=== PATIENT | male | born 1970 ===

== ENCOUNTER 2016-11-22 14:02 | Emergency (ER) | payer OTHER ==
[2016-11-22 14:32] VITALS: TEMP 98
--- NOTE | 2016-11-22 15:20 | C.PDOC ---
History Of Present Illness 46 yr old male with PMHx of chronic back pain, presents to the ER stating yesterday he shoveled some heavy snow and this morning woke up with constant low back pain. Patient denies fall or direct trauma, abdominal pain, vomiting, diarrhea, dysuria, incontinence, urinary or bowel retention, weakness or numbness. Time Seen by Provider: 11/22/16 14:20 Chief Complaint (Nursing): Back Pain History Per: Patient History/Exam Limitations: no limitations Onset/Duration Of Symptoms: Sudden Onset (since morning) Current Symptoms Are (Timing): Still Present Pain Scale Rating Of: 6 Associated Symptoms: denies: Incontinence, New Weakness, New Numbness Exacerbating Factor(s): Turning, Movement Recent travel outside of the [place]: No Past Medical History Reviewed: Historical Data, Nursing Documentation, Vital Signs Vital Signs: Last Vital Signs Temp 98.0 F 11/22/16 14:18 Pulse 87 11/22/16 14:18 Resp 20 11/22/16 14:18 BP 122/71 11/22/16 14:18 Pulse Ox 99 11/22/16 15:22 Family History: States: No Known Family Hx - Social History Hx Alcohol Use: No Hx Substance Use: No - Immunization History Hx Tetanus Toxoid Vaccination: No Hx Influenza Vaccination: Yes Hx Pneumococcal Vaccination: No Review Of Systems Except As Marked, All Systems Reviewed And Found Negative. Gastrointestinal: Negative for: Vomiting, Abdominal Pain, Diarrhea Genitourinary: Negative for: Dysuria, Incontinence Musculoskeletal: Positive for: Back Pain Neurological: Negative for: Weakness, Numbness Physical Exam - Physical Exam Appears: Non-toxic, No Acute Distress Skin: Normal Color, Warm, Dry, No Rash Head: Atraumatic, Normacephalic Eye(s): bilateral: Normal Inspection Oral Mucosa: Moist Neck: Normal ROM, No Midline Cervical Tenderness, No Paracervical Tenderness Chest: Symmetrical, No Tenderness Cardiovascular: Rhythm Regular, No Friction Rub, No Murmur Respiratory: Normal Breath Sounds, No Rales, No Rhonchi, No Stridor, No Wheezing Gastrointestinal/Abdominal: Normal Exam, Soft, No Tenderness, No Guarding, No Rebound Back: No CVA Tenderness, Paraspinal Tenderness (bilateral para lumbar tenderness. No midline tenderness) Extremity: Normal ROM, No Tenderness, No Swelling Neurological/Psych: Oriented x3, Normal Speech, Normal Motor, Normal Sensation Gait: Steady ED Course And Treatment O2 Sat by Pulse Oximetry: 99 (on RA) Pulse Ox Interpretation: Normal Medical Decision Making Medical Decision Making: PLAN: * Flexril PO * Toradol IM On re-exam, the patient reports improvement of symptoms. Lungs are CTA, heart is RRR, abdomen is soft, non-tender and tolerating PO well. Follow up with the medical doctor within 1-2 days. Return if worsened. Disposition - Disposition Referrals: Hoang Olivarez MD [Medical Doctor] - Disposition: HOME/ ROUTINE Disposition Time: 15:51 Condition: GOOD Additional Instructions: Follow up with the medical doctor within 1-2 days. Return if worsened. Prescriptions: Cyclobenzaprine [Flexeril] 5 mg PO TID #21 tab Naproxen [Naprosyn] 500 mg PO BID #20 tab predniSONE [Prednisone] 20 mg PO BID #10 tab Instructions: Acute Low Back Pain (DC) - Clinical Impression Clinical Impression: Low back pain - PA / NEON SIGN INSTALLER / Resident Statement MD/DO has reviewed & agrees with the documentation as recorded. - Scribe Statement The provider has reviewed the documentation as recorded by the Scribe Darya Ellsworth All medical record entries made by the Ansonibpatricia were at my direction and personally dictated by me. I have reviewed the chart and agree that the record accurately reflects my personal performance of the history, physical exam, medical decision making, and the department course for this patient. I have also personally directed, reviewed, and agree with the discharge instructions and disposition.
[2016-11-22 16:05] VITALS: BP 130/71; PULSE 77; RESP 18; O2SAT 95
== END 2016-11-22 16:05 | disposition home or self-care (01) ==
LOC: C.ER 14:02
DX: M54.5 Low back pain (principal)

== ENCOUNTER 2016-11-27 14:16 | Emergency (ER) | payer OTHER ==
--- NOTE | 2016-11-27 16:06 | C.PDOC ---
History Of Present Illness 46 yr old male with PMHx of herniated disc, Hep C and migraines, presents to the ER with complaints of low back pain and right leg pain for the past 1 week after shoveling snow. Patient states the pain is constant, made worse with lifting objects. Patient denies direct trauma, fall, chest pain, SOB, abdominal pain, diarrhea, dysuria, hematuria, weakness or numbness. Time Seen by Provider: 11/27/16 15:26 Chief Complaint (Nursing): Back Pain History Per: Patient History/Exam Limitations: no limitations Onset/Duration Of Symptoms: Days (1 week) Current Symptoms Are (Timing): Still Present Past Medical History Reviewed: Historical Data, Nursing Documentation, Vital Signs Vital Signs: Last Vital Signs Temp 98.3 F 11/27/16 15:10 Pulse 78 11/27/16 15:10 Resp 20 11/27/16 15:10 BP 113/66 11/27/16 15:10 Pulse Ox 96 11/27/16 16:16 - Medical History PMH: Hepatitis (C), Migraine Family History: States: No Known Family Hx - Social History Hx Alcohol Use: No Hx Substance Use: No - Immunization History Hx Tetanus Toxoid Vaccination: No Hx Influenza Vaccination: Yes Hx Pneumococcal Vaccination: No Review Of Systems Except As Marked, All Systems Reviewed And Found Negative. Cardiovascular: Negative for: Chest Pain Respiratory: Negative for: Shortness of Breath Gastrointestinal: Negative for: Abdominal Pain, Diarrhea Genitourinary: Negative for: Dysuria, Hematuria Musculoskeletal: Positive for: Back Pain (Low), Leg Pain (Right leg pain ) Neurological: Negative for: Weakness, Numbness Physical Exam - Physical Exam Appears: Non-toxic, No Acute Distress Skin: Warm, Dry, No Rash Head: Atraumatic, Normacephalic Oral Mucosa: Moist Neck: Normal, Normal ROM, Supple Chest: Symmetrical, No Tenderness Cardiovascular: Rhythm Regular, No Murmur Respiratory: No Rales, No Rhonchi, No Stridor, No Wheezing, Other ((+) Crackles ) Gastrointestinal/Abdominal: Normal Exam, Soft, No Tenderness, No Guarding, No Rebound Back: Other ((+) Right lumbar tenderness) Extremity: Normal ROM, No Swelling, Other (Right lower extremity, weakness 4/5 on flexion. Right leg, calf and thigh diminshed sensations. ) Neurological/Psych: Oriented x3, Normal Speech, Normal Motor Gait: Steady ED Course And Treatment O2 Sat by Pulse Oximetry: 96 Medical Decision Making Medical Decision Making: PLAN: * Flexril PO * Gabapentin PO * Toradol IM Disposition Counseled Patient/Family Regarding: Diagnosis, Need For Followup - Disposition Referrals: Hoang Olivarez MD [Medical Doctor] - Disposition: HOME/ ROUTINE Disposition Time: 16:17 Condition: GOOD Prescriptions: Cyclobenzaprine [Cyclobenzaprine HCl] 1 tab PO Q8H PRN #25 tab PRN Reason: Muscle Spasm Naproxen [Naprosyn] 1 tab PO BID PRN #25 tab PRN Reason: Pain Gabapentin [Neurontin] 1 cap PO TID #90 cap Instructions: Chronic Back Pain (ED) - Clinical Impression Clinical Impression: Chronic back pain - Scribe Statement The provider has reviewed the documentation as recorded by the Misael Ellsworth Provider Attestation: All medical record entries made by the Ansonibpatricia were at my direction and personally dictated by me. I have reviewed the chart and agree that the record accurately reflects my personal performance of the history, physical exam, medical decision making, and the department course for this patient. I have also personally directed, reviewed, and agree with the discharge instructions and disposition.
[2016-11-27 17:16] VITALS: BP 119/76; PULSE 74; RESP 16; TEMP 98.7; O2SAT 98
== END 2016-11-27 17:16 | disposition home or self-care (01) ==
LOC: C.ER 14:16
DX: M54.5 Low back pain (principal); G89.29 Other chronic pain
CPT/HCPCS: 96372; 99284; J1885

== ENCOUNTER 2017-02-13 18:39 | Emergency (ER) | payer SELFPAY ==
[2017-02-13 18:56] VITALS: TEMP 97.9
--- NOTE | 2017-02-13 19:55 | C.PDOC ---
History Of Present Illness 46 year old patient presents to the ED complaining of left wrist pain that has progressively become worse over the last few days. 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 Patient denies fever , numbness, or weakness. Time Seen by Provider: 02/13/17 18:58 Chief Complaint (Nursing): Finger,Hand,&Wrist History Per: Patient History/Exam Limitations: no limitations Onset/Duration Of Symptoms: Days (5) Current Symptoms Are (Timing): Still Present Quality: "Pain" Severity: Mild Pain Scale Rating Of: 3 Exacerbating Factor(s): Movement Recent travel outside of the [place]: No Past Medical History Reviewed: Historical Data, Nursing Documentation, Vital Signs Vital Signs: Last Vital Signs Temp 97.9 F 02/13/17 18:45 Pulse 75 02/13/17 20:05 Resp 18 02/13/17 20:05 BP 115/65 02/13/17 20:05 Pulse Ox 99 02/13/17 21:42 - Medical History PMH: Hepatitis (C), Migraine Family History: States: No Known Family Hx - Social History Hx Alcohol Use: No Hx Substance Use: No - Immunization History Hx Tetanus Toxoid Vaccination: No Hx Influenza Vaccination: No Hx Pneumococcal Vaccination: No Review Of Systems Except As Marked, All Systems Reviewed And Found Negative. Constitutional: Negative for: Fever Musculoskeletal: Positive for: Other (left wrist pain) Neurological: Negative for: Weakness, Numbness Physical Exam - Physical Exam Appears: Non-toxic, No Acute Distress Skin: Warm, Dry Head: Atraumatic, Normacephalic Eye(s): bilateral: Normal Inspection Oral Mucosa: Moist Neck: Normal ROM, Supple Extremity: Normal ROM, Capillary Refill (<2 seconds), No Deformity, No Swelling , Other (left forearm: tenderness and pain to the radial aspect of the forearm; normal ROM; normal distal pulse; no swelling; no deformity) Pulses: Left Radial: Normal, Right Radial: Normal Neurological/Psych: Oriented x3, Normal Motor, Normal Sensation Gait: Steady ED Course And Treatment O2 Sat by Pulse Oximetry: 99 (room air) Pulse Ox Interpretation: Normal - Other Rad left forearm x-ray X-Ray: Interpreted by Me, Viewed By Me Interpretation: no fractures or dislocations Medical Decision Making Medical Decision Making: Plan: * Tylenol * Left forearm x-ray xray are negative. Velcro wrist splint was applied by mammography technologist. Disposition - Disposition Referrals: Hoang Olivarez MD [Medical Doctor] - Disposition: HOME/ ROUTINE Disposition Time: 19:53 Condition: GOOD Additional Instructions: Follow up with the medical doctor within 1-2 days. Return if worsened. Prescriptions: Ibuprofen [Motrin] 600 mg PO TID #21 tab Instructions: Wrist Sprain (ED) Forms: Work Excuse - Clinical Impression Clinical Impression: Wrist sprain - PA / RESIDENT INSPECTOR / Resident Statement MD/DO has reviewed & agrees with the documentation as recorded. - Scribe Statement The provider has reviewed the documentation as recorded by the Scribe Aileen Simmons All medical record entries made by the Scribe were at my direction and personally dictated by me. I have reviewed the chart and agree that the record accurately reflects my personal performance of the history, physical exam, medical decision making, and the department course for this patient. I have also personally directed, reviewed, and agree with the discharge instructions and disposition.
[2017-02-13 20:06] VITALS: BP 115/65; PULSE 75; RESP 18
[2017-02-13 21:38] VITALS: O2SAT 99
--- NOTE | 2017-02-14 08:35 | RAD ---
PROCEDURE: Radiographs of the Left Forearm HISTORY: forearm pain COMPARISON: None available. TECHNIQUE: Frontal and lateral views obtained. FINDINGS: BONES: No fracture or destructive lesion. JOINT SPACES: Unremarkable. OTHER FINDINGS: None. IMPRESSION: Unremarkable radiographs of the left forearm.
== END 2017-02-13 20:07 | disposition home or self-care (01) ==
LOC: C.ER 18:39
DX: S63.502A Unspecified sprain of left wrist, initial encounter (principal); X50.0XXA Overexertion from strenuous movement or load, initial encounter; Y93.89 Activity, other specified; Y92.89 Other specified places as the place of occurrence of the external cause; Y99.8 Other external cause status

== ENCOUNTER 2017-03-13 16:06 | Emergency (ER) | payer OTHER ==
--- NOTE | 2017-03-13 16:56 | C.PDOC ---
History Of Present Illness 46 y/o male presents to the ED with complaints of diffuse itchy rash x3 days mostly to arms and abdomen. Pt denies fever, chills, SOB or any other complaints. Denies noticing any bugs at home, or others at home with the same symptoms. Time Seen by Provider: 03/13/17 16:13 Chief Complaint (Nursing): Abnormal Skin Integrity History Per: Patient History/Exam Limitations: no limitations Onset/Duration Of Symptoms: Days Current Symptoms Are (Timing): Still Present Quality Of Symptoms: Itching Severity: Mild Recent travel outside of the [place]: No Past Medical History Reviewed: Historical Data, Nursing Documentation, Vital Signs Vital Signs: Last Vital Signs Temp 98.2 F 03/13/17 17:56 Pulse 82 03/13/17 17:56 Resp 17 03/13/17 17:56 BP 134/75 03/13/17 17:56 Pulse Ox 99 03/13/17 22:56 - Medical History PMH: Hepatitis (C), Migraine Family History: States: Unknown Family Hx - Social History Hx Alcohol Use: No Hx Substance Use: No - Immunization History Hx Tetanus Toxoid Vaccination: No Hx Influenza Vaccination: No Hx Pneumococcal Vaccination: No Review Of Systems Constitutional: Negative for: Fever, Chills Cardiovascular: Negative for: Chest Pain Respiratory: Negative for: Cough, Shortness of Breath Gastrointestinal: Negative for: Abdominal Pain Skin: Positive for: Rash (diffuse itchy rash) Neurological: Negative for: Weakness, Numbness Physical Exam - Physical Exam Appears: Non-toxic, No Acute Distress Skin: Warm, Dry, Rash (bilateral arms with diffuse erythema and excoriations; anterior aspects of arms and lower abdomen with 1-2 mm erythematous papules in a row; no rash on palms, no lesions in webbed spaces) Head: Atraumatic, Normacephalic Chest: Symmetrical Cardiovascular: Rhythm Regular, No Murmur Respiratory: Normal Breath Sounds, No Rales, No Rhonchi, No Wheezing Neurological/Psych: Oriented x3, Normal Speech ED Course And Treatment O2 Sat by Pulse Oximetry: 99 (room air) Pulse Ox Interpretation: Normal Progress Note: Treat with permethrin for scabies and/or allergic reaction. Disposition Counseled Patient/Family Regarding: Diagnosis, Need For Followup, Rx Given - Disposition [facility] [Outside] Disposition: HOME/ ROUTINE Disposition Time: 17:25 Condition: STABLE Additional Instructions: Take Benadryl (makes you sleepy) and prednisone for itch. Try to avoid scratching. Wash all bedding in hot water and put through dryer. Use permetherin cream on your body as prescribed. If rash worsening, you develop fever or any other concerning symptoms, return to ER. Follow up in medical clinic.. Prescriptions: DiphenhydrAMINE [Benadryl] 25 mg PO Q6 #30 cap Permethrin 5% [Permethrin] 30 gm TOP ONCE #1 tube predniSONE [predniSONE Tab] 2 tab PO DAILY #10 tab Instructions: Acute Rash (ED) Forms: General Discharge Instructions - Clinical Impression Clinical Impression: Rash and nonspecific skin eruption - PA / POLISHER NUMERAL / Resident Statement MD/DO has reviewed & agrees with the documentation as recorded. - Scribe Statement The provider has reviewed the documentation as recorded by the Misael Romero All medical record entries made by the Misael were at my direction and personally dictated by me. I have reviewed the chart and agree that the record accurately reflects my personal performance of the history, physical exam, medical decision making, and the department course for this patient. I have also personally directed, reviewed, and agree with the discharge instructions and disposition.
[2017-03-13 17:57] VITALS: BP 134/75; PULSE 82; RESP 17; TEMP 98.2
[2017-03-13 17:58] VITALS: O2SAT 99
== END 2017-03-13 17:57 | disposition home or self-care (01) ==
LOC: C.ER 16:06
DX: R21 Rash and other nonspecific skin eruption (principal)

== ENCOUNTER 2017-04-04 18:45 | Emergency (ER) | payer OTHER ==
[2017-04-04 18:51] VITALS: O2SAT 98
--- NOTE | 2017-04-04 19:36 | C.PDOC ---
History Of Present Illness 46 y/o male presents to the ED with complaints of severe lower back pain after lifting heavy object at work. Denies weakness, numbness, incontinence or any other complaints. Time Seen by Provider: 04/04/17 19:10 Chief Complaint (Nursing): Back Pain History Per: Patient History/Exam Limitations: no limitations Onset/Duration Of Symptoms: Days Current Symptoms Are (Timing): Still Present Quality Of Discomfort: "Pain" Severity: Moderate Associated Symptoms: None Recent travel outside of the [place]: No Past Medical History Reviewed: Historical Data, Nursing Documentation, Vital Signs Vital Signs: Last Vital Signs Temp 98 F 04/04/17 20:50 Pulse 70 04/04/17 20:50 Resp 18 04/04/17 20:50 BP 103/66 04/04/17 20:50 Pulse Ox 98 04/04/17 21:18 - Medical History PMH: Back Problems, Hepatitis (C), Migraine Family History: States: Unknown Family Hx - Social History Hx Alcohol Use: No Hx Substance Use: No - Immunization History Hx Tetanus Toxoid Vaccination: No Hx Influenza Vaccination: No Hx Pneumococcal Vaccination: No Review Of Systems Except As Marked, All Systems Reviewed And Found Negative. Genitourinary: Negative for: Incontinence Musculoskeletal: Positive for: Back Pain Neurological: Negative for: Weakness, Numbness Physical Exam - Physical Exam Appears: Non-toxic, No Acute Distress Skin: Warm, Dry, No Rash Head: Atraumatic, Normacephalic Neck: Normal, Normal ROM, No Midline Cervical Tenderness, No Paracervical Tenderness, Supple Back: Vertebral Tenderness (lower back), No Decreased ROM, Paraspinal Tenderness (lower back) Extremity: Normal ROM Extremity: Bilateral: Atraumatic Neurological/Psych: Oriented x3, Normal Speech, Normal Cognition, Normal Motor, Normal Sensation ED Course And Treatment O2 Sat by Pulse Oximetry: 98 (room air) Pulse Ox Interpretation: Normal Progress Note: Plan: XR lumbar spine, lidoderm, oxycodone, toradol, valium. XR normal, no fracture or dislocation. On reassessment, patient is resting comfortably, with improvement of back pain. Patient remains afebrile, with no bony tenderness, extremity numbness or weakness, or abdominal pain. Patient is ambulatory in the emergency department with no signs of discomfort. Patient was advised to follow up with physician/clinic in 1-2 days. Disposition - Disposition Disposition: HOME/ ROUTINE Disposition Time: 20:39 Condition: STABLE Additional Instructions: Follow up with PMD within 1-2 days. Return to Ed if feel worse. Prescriptions: Ibuprofen [Motrin Tab] 600 mg PO Q8 #30 tab traMADol [Ultram] 50 mg PO Q6 #20 tab Instructions: Back Pain (GEN) Forms: [facility] ([place]) - Clinical Impression Clinical Impression: Low back pain - PA / WATER ENGINEER / Resident Statement MD/DO has reviewed & agrees with the documentation as recorded. - Scribe Statement The provider has reviewed the documentation as recorded by the Scribpatricia Romero All medical record entries made by the Misael were at my direction and personally dictated by me. I have reviewed the chart and agree that the record accurately reflects my personal performance of the history, physical exam, medical decision making, and the department course for this patient. I have also personally directed, reviewed, and agree with the discharge instructions and disposition.
[2017-04-04] MEDS ORDERED: Oxycodone/Acetaminophen 5/325 mg Tab PO STA (19:39)
[2017-04-04] MEDS ORDERED: Lidocaine 5% Patch TD STA (19:39)
[2017-04-04] MEDS ORDERED: Oxycodone/Acetaminophen 5/325 mg Tab ONE (19:50)
[2017-04-04] MEDS ORDERED: Lidocaine 5% Patch TD ONE (19:51)
[2017-04-04 20:52] VITALS: BP 103/66; PULSE 70; RESP 18; TEMP 98
--- NOTE | 2017-04-05 10:41 | RAD ---
PROCEDURE: Radiographs of the Lumbar Spine. HISTORY: back pain COMPARISON: None available FINDINGS: BONES: Alignment appears satisfactory. Grade 1 anterolisthesis of L5 on S1. Facet hypertrophy. No acute displaced fracture identified. DISC SPACES: No subluxation. Vacuum disc phenomenon at L4-L5. OTHER FINDINGS: Right pelvic calcification, likely phlebolith. IMPRESSION: No acute displaced fracture or subluxation identified. Degenerative changes. Facet hypertrophy. Grade 1 anterolisthesis of L5 on S1. Vacuum disc phenomenon at L4-L5.
== END 2017-04-04 20:52 | disposition home or self-care (01) ==
LOC: C.ER 18:45
DX: M54.5 Low back pain (principal)
CPT/HCPCS: 72100; 96372; 99284; J1885

== ENCOUNTER 2017-04-11 21:28 | Emergency (ER) | payer SELFPAY ==
[2017-04-11 22:10] VITALS: BMI 25.5
[2017-04-11 22:17] VITALS: RESP 18
--- NOTE | 2017-04-11 22:20 | C.PDOC ---
History Of Present Illness 46 y/o male with hx of herniated disks for many years in lower back c/o worsening pain in lower back that radiates to right posterior thigh. pt has had this pain in the past; seen in ED recently (on 04/04) for same and discharged with ibuprofen, valium, and ultram, which patient sts do not help him. denies any weakness to lower extremities, no bladder or bowel dysfunction, no numbness or tingling. denies any recent trauma. Time Seen by Provider: 04/11/17 22:17 Chief Complaint (Nursing): Back Pain History Per: Patient History/Exam Limitations: no limitations Onset/Duration Of Symptoms: Days (7) Current Symptoms Are (Timing): Still Present Quality Of Discomfort: Unable To Describe Severity: Moderate Previous Symptoms: Back Pain, Chronic Pain, Prior Injury Associated Symptoms: None. denies: New Weakness, New Numbness Exacerbating Factor(s): Movement Recent travel outside of the [place]: No Past Medical History Reviewed: Historical Data Vital Signs: Last Vital Signs Temp 98.4 F 04/11/17 23:36 Pulse 72 04/11/17 23:36 Resp 18 04/11/17 23:36 BP 111/70 04/11/17 23:36 Pulse Ox 98 04/11/17 23:36 - Medical History PMH: Back Problems, Hepatitis (C), Migraine Surgical History: No Surg Hx Family History: States: Unknown Family Hx - Social History Hx Tobacco Use: Yes Hx Alcohol Use: No Hx Substance Use: No - Immunization History Hx Tetanus Toxoid Vaccination: No Hx Influenza Vaccination: No Hx Pneumococcal Vaccination: No Review Of Systems Constitutional: Negative for: Fever Cardiovascular: Negative for: Chest Pain Respiratory: Negative for: Shortness of Breath Gastrointestinal: Negative for: Abdominal Pain Genitourinary: Negative for: Incontinence Musculoskeletal: Positive for: Back Pain. Negative for: Neck Pain, Shoulder Pain Skin: Negative for: Rash Neurological: Negative for: Weakness, Numbness Physical Exam - Physical Exam Appears: Non-toxic, No Acute Distress Skin: Normal Color, Warm, Dry Head: Atraumatic, Normacephalic Neck: Normal, No Midline Cervical Tenderness Chest: Symmetrical, No Deformity, No Tenderness Gastrointestinal/Abdominal: Soft, No Tenderness Back: Normal Inspection, Paraspinal Tenderness (left and right lumbar, right more than left), Other Extremity: Normal ROM, No Tenderness Neurological/Psych: Oriented x3, Normal Speech, Normal Cognition, Normal Motor, Normal Sensation Medical Decision Making Medical Decision Making: pt seen in ED several times for same pain; will tx for pain with nsaids, muscle relaxant and lidoderm patches. pt advised to f/u in medical clinic. physical therapy and pain management recommended. Disposition Counseled Patient/Family Regarding: Diagnosis, Need For Followup, Rx Given - Disposition Referrals: [facility] [Outside] [facility] [Outside] Disposition: HOME/ ROUTINE Disposition Time: 23:50 Condition: STABLE Additional Instructions: Avoid heavy lifting. Please call Clinic to make soonest appointment; recommend physcial therapy and referral to pain management clinic. Take medications as advised. Prescriptions: Cyclobenzaprine [Cyclobenzaprine HCl] 10 mg PO Q8 #9 tab Lidocaine 5% [Lidoderm] 1 ea TD DAILY #10 patch Naproxen 500 mg PO BID #20 tab Instructions: Chronic Back Pain (ED) Forms: [facility] (Polish), General Discharge Instructions - Clinical Impression Clinical Impression: Chronic back pain
[2017-04-11] MEDS ORDERED: Lidocaine 5% Patch TD STA (22:46)
[2017-04-11] MEDS ORDERED: Lidocaine 5% Patch TD ONE (22:58)
[2017-04-11 23:37] VITALS: BP 111/70; PULSE 72; TEMP 98.4; O2SAT 98
== END 2017-04-11 23:59 | disposition home or self-care (01) ==
LOC: C.ER 21:28
DX: G89.29 Other chronic pain (principal); M54.5 Low back pain
CPT/HCPCS: 96372; 99284; J1885

== ENCOUNTER 2017-04-30 10:27 | Emergency (ER) | payer OTHER ==
[2017-04-30 10:27] VITALS: BMI 25.5
[2017-04-30 10:51] VITALS: BP 106/67; PULSE 66; RESP 18; TEMP 98.4; O2SAT 97
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
== END 2017-04-30 11:50 | disposition home or self-care (01) ==
LOC: C.ER 10:27
DX: M54.5 Low back pain (principal)

== ENCOUNTER 2017-05-07 12:47 | Emergency (ER) | payer OTHER ==
[2017-05-07 12:57] VITALS: BMI 25.1
[2017-05-07 13:01] VITALS: BP 105/73; PULSE 80; RESP 20; TEMP 98.8; O2SAT 98
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
== END 2017-05-07 13:32 | disposition home or self-care (01) ==
LOC: C.ER 12:47
DX: G89.29 Other chronic pain (principal); M54.9 Dorsalgia, unspecified
CPT/HCPCS: 96372; 99283; J1885